=== PATIENT | male | born 1960 | race African-American/Black ===

== ENCOUNTER 2018-11-19 09:13 | Inpatient (IN) ==
[2018-11-19] MEDS ORDERED: DEXTROSE 50% 25 GM/50 ML SYRINGE IV PRN (09:59)
[2018-11-19] MEDS ORDERED: GLUCAGON 1 MG VIAL IM PRN (09:59)
[2018-11-19] MEDS ORDERED: ZOLPIDEM 5 MG TABLET PO PRN (10:10)
[2018-11-19] MEDS ORDERED: oxyCODONE/ACETAMINOPHEN 5-325 MG TABLET PO PRN (10:11)
[2018-11-19 17:05] LABS: Basophils % 0.2 % (0.0-0.8); Eosinophils % 0.6 % (0.00-10.9); Hematocrit 40.2 VOL% (42.0-52.0); Hemoglobin 12.4 GM/DL (14.0-18.0); Immature Granulocytes % 0.2 %; Immature Granulocytes Absolute 0.01 #; Lymphocytes # 1.2 10*3/uL (1.4-4.0); Lymphocytes % 24.1 % (21.2-54.2); Mean Corpuscular HGB Conc 30.8 GM/DL (32-36); Mean Corpuscular Volume 84.5 FL (87-102); Mean Platelet Volume 10.1 FL (9.6-12.0); Monocytes % 10.1 % (1.7-12.7); Neutrophils % 64.8 % (38.7-73.9); Platelet Count 301 T/CUMM (130-400); Red Blood Count 4.76 MC/CUMM (3.8-5.5); Red Cell Distribution Width 17.6 % (9.3-17.3); White Blood Count 4.9 T/CUMM (4-12)
[2018-11-19 17:24] LABS: ABG Base Excess 1.2 MMOL/L (-2.5-2.5); ABG HCO3 25.5 MMOL/L (20-26); ABG Oxygen Saturation 96.9 % (95-100); ABG PCO2 33.7 MM HG (35-48); ABG PH 7.467 (7.35-7.45); ABG PO2 88.4 MM HG (80-95); ABG TCO2 21.4 MMOL/L (23-27); Pt O2 Delivery Device Room Air
[2018-11-19 17:29] LABS: Albumin 2.5 G/DL (3.4-5.0); Bilirubin,Total 1.2 MG/DL (0.2-1.0); Osmolality,Calculated 281.7 MOS/KG (273-304); Total Protein 6.1 G/DL (6.4-8.3)
[2018-11-19] MEDS: METOPROLOL TARTRATE 50 MG TABLET PO SCH (20:48)
[2018-11-19] MEDS: CHLORHEXIDINE 0.12% ORAL RINSE 60 ML BOTTLE SWISH/SPIT SCH (20:48)
[2018-11-20] MEDS: SODIUM CHLORIDE 0.9% 1,000 ML IV SCH (05:02)
[2018-11-20] MEDS: ATORVASTATIN 80 MG TABLET PO SCH (09:05)
[2018-11-20] MEDS: CHLORHEXIDINE 0.12% ORAL RINSE 60 ML BOTTLE SWISH/SPIT SCH ×2 (09:05→21:29)
[2018-11-20] MEDS: ASPIRIN CHEW 81 MG TABLET PO SCH (09:05)
[2018-11-20] MEDS: METOPROLOL TARTRATE 50 MG TABLET PO SCH ×2 (09:06→21:27)
[2018-11-20] MEDS: PANTOPRAZOLE 40 MG TABLET PO SCH (09:06)
[2018-11-20] MEDS: FUROSEMIDE 40 MG TABLET PO SCH (09:06)
[2018-11-20] MEDS: CHLORHEXIDINE 4% SOLN 118 ML BOTTLE TOP SCH ×2 (15:13→21:29)
[2018-11-21] MEDS ORDERED: CEFUROXIME INJ 1,500 MG in SYRINGE 1 EACH IV ONE (05:00)
[2018-11-21] MEDS ORDERED: PAPAVERINE 60 MG/2 ML VIAL ONE (05:18)
[2018-11-21] MEDS ORDERED: VANCOMYCIN 1,000 MG VIAL ONE (05:19)
[2018-11-21] MEDS ORDERED: LORazepam 1 MG TABLET PO ONE (06:00)
[2018-11-21] MEDS: METOPROLOL TARTRATE 50 MG TABLET PO SCH ×2 (06:10→20:53)
[2018-11-21] MEDS: PANTOPRAZOLE 40 MG TABLET PO SCH ×2 (06:10→20:54)
[2018-11-21] MEDS ORDERED: SUFentanil 250 MCG/5 ML AMP ONE (06:19)
[2018-11-21] MEDS ORDERED: MIDAZOLAM 10 MG/2 ML VIAL ONE (06:20)
[2018-11-21] MEDS ORDERED: MINERAL OIL/PETROLATUM OPH OINT 3.5 GM TUBE ONE (06:20)
[2018-11-21 07:39] LABS: ABG Base Excess 0.1 MMOL/L (-2.5-2.5); ABG HCO3 24.6 MMOL/L (20-26); ABG Oxygen Saturation 99.9 % (95-100); ABG PCO2 38.8 MM HG (35-48); ABG TCO2 21.9 MMOL/L (23-27); Glucose Heart Surgery 141 MG/DL (74-106); Hematocrit Heart Surgery 35.4 PERCENT (42-52); Hemoglobin Heart Surgery 11.5 G/DL (14.0-18.0); Ionized Calcium Arterial 1.14 MMOL/L (1.21-1.46); PCO2 Patient Temp Arterial 38.8 MMHG; Patient Temperature 37 CELCIUS; Potassium Heart/CVR 3.5 MMOL/L (3.5-5.1); Sodium Heart/CVR 136 MMOL/L (135-145)
[2018-11-21 07:45] LABS: Apearance,Urine CLEAR (Clear); Bilirubin,Urine Negative (Negative); Blood, Urine Small mg/dL (Negative); Glucose,Urine (UA) Negative (Negative); Ketones,Urine Negative (Negative); Mucus,Urine Occasional /LPF (Occasional); Nitrite,Urine Negative (Negative); Protein,Urine Negative; RBC,Urine 28 /HPF (0-4); Urine Color Yellow (Yellow); Urine Specific Gravity 1.018 (1.001-1.035); WBC,Urine <1 /HPF (0-6)
[2018-11-21] MEDS ORDERED: SODIUM BICARBONATE 50 MEQ/50 ML VIAL IV ONE ×2 (08:29→09:35)
[2018-11-21] MEDS ORDERED: PHENYLEPHRINE DRIP 40 MG/250 ML PREMIX IV ONE (08:29)
[2018-11-21] MEDS ORDERED: NITROPRUSSIDE 50 MG/2 ML VIAL ONE (08:29)
[2018-11-21] MEDS ORDERED: CALCIUM CHLORIDE 1,000 MG/10 ML SYRINGE IV ONE (08:29)
[2018-11-21] MEDS ORDERED: POTASSIUM CHLORIDE RIDER 100 ML IV ONE (08:30)
[2018-11-21] MEDS ORDERED: EPINEPHrine 1 MG/10 ML SYRINGE ONE (08:30)
[2018-11-21] MEDS ORDERED: ALBUMIN 5% 12.5 GM/250 ML VIAL IV ONE (08:31)
[2018-11-21 08:47] LABS: Hematocrit Heart Surgery 23.9 PERCENT (42-52); Hemoglobin Heart Surgery 7.6 G/DL (14.0-18.0); PCO2 Patient Temp Venous 32.4 MM HG; PH Patient Temp Venous 7.482; PO2 Patient Temp Venous 44.3 MM HG; Potassium Heart/CVR 3.8 MMOL/L (3.5-5.1); VBG Base Excess 1.2 MEQ/L (0-4); VBG HCO3 25.3 MEQ/L (24-28); VBG Oxygen Saturation 84.4 %; VBG PCO2 35.7 MMHG (41-51); VBG PH 7.452; VBG PO2 50.7 MMHG (17-40)
[2018-11-21] MEDS ORDERED: ALBUMIN 25% 25 GM/100 ML VIAL IV ONE (09:35)
[2018-11-21] MEDS ORDERED: DEXTROSE 5% KCL 20 MEQ 20 MEQ/1,000 ML BAG IV ONE (09:35)
[2018-11-21] MEDS ORDERED: MANNITOL 100 GM/500 ML BAG IV ONE (09:35)
[2018-11-21] MEDS ORDERED: PROTAMINE SULFATE 250 MG/25 ML VIAL IV ONE (09:35)
[2018-11-21] MEDS ORDERED: FUROSEMIDE 20 MG/2 ML VIAL ONE (09:36)
[2018-11-21] MEDS ORDERED: MAGNESIUM SULFATE 5 GM/10 ML VIAL IV ONE (09:36)
[2018-11-21] MEDS ORDERED: HEPARIN 10,000 UNIT/10 ML VIAL ONE (09:36)
[2018-11-21] MEDS ORDERED: methylPREDNISolone SOD SUC 1,000 MG/8 ML VIAL ONE (09:36)
[2018-11-21] MEDS ORDERED: POTASSIUM CHLORIDE 20 MEQ/10 ML VIAL ONE (09:36)
[2018-11-21 09:43] LABS: ABG HCO3 24.5 MMOL/L (20-26); ABG PCO2 35.7 MM HG (35-48); ABG PH 7.436 (7.35-7.45); ABG TCO2 22.5 MMOL/L (23-27); Glucose Heart Surgery 210 MG/DL (74-106); Hematocrit Heart Surgery 23.6 PERCENT (42-52); Hemoglobin Heart Surgery 7.6 G/DL (14.0-18.0); Ionized Calcium Arterial 1.17 MMOL/L (1.21-1.46); PCO2 Patient Temp Arterial 35.7 MMHG; PH Patient Temp Arterial 7.436; Patient Temperature 37 CELCIUS; Potassium Heart/CVR 4.1 MMOL/L (3.5-5.1); Sodium Heart/CVR 133 MMOL/L (135-145)
[2018-11-21] MEDS ORDERED: DOBUTamine 500 MG/250 ML PREMIX IV ONE ×2 (10:09→10:38)
[2018-11-21] MEDS ORDERED: LACTATED RINGERS 1,000 ML IV ONE ×5 (10:30→18:00)
[2018-11-21] MEDS: SODIUM CHLORIDE 0.45% 1,000 ML IV SCH ×2 (10:30)
[2018-11-21] MEDS ORDERED: PHENYLEPHRINE 10 MG/1 ML VIAL IV ONE (10:38)
[2018-11-21] MEDS ORDERED: CALCIUM CHLORIDE 1,000 MG/10 ML VIAL IV ONE (10:38)
[2018-11-21] MEDS ORDERED: SEVOFLURANE 1 UNIT/15 MINUTE INH ONE (10:38)
[2018-11-21] MEDS ORDERED: VECURONIUM 10 MG VIAL IV ONE (10:38)
[2018-11-21] MEDS ORDERED: HEPARIN/NACL 0.9% 2 UNITS/ML 500 ML IV ONE (10:38)
[2018-11-21] MEDS ORDERED: NITROGLYCERIN DRIP 50 MG/250 ML BOTTLE IV ONE (10:38)
[2018-11-21] MEDS ORDERED: ETOMIDATE 40 MG/20 ML VIAL IV ONE (10:38)
[2018-11-21] MEDS ORDERED: AMIODARONE 150 MG/3 ML VIAL ONE (10:38)
[2018-11-21] MEDS ORDERED: SODIUM CHLORIDE 0.9% 100 ML IV ONE (10:39)
[2018-11-21] MEDS ORDERED: SODIUM CHLORIDE 0.9% 250 ML IV ONE (10:39)
[2018-11-21] MEDS ORDERED: AMINOCAPROIC ACID 5,000 MG/20 ML VIAL ONE (10:39)
[2018-11-21] MEDS ORDERED: SODIUM CHLORIDE 0.9% 1,000 ML IV ONE (10:39)
[2018-11-21] MEDS ORDERED: NITROPRUSSIDE 100 MG in DEXTROSE 5% 250 ML IV PRN (11:03)
[2018-11-21] MEDS ORDERED: MAGNESIUM SULF RIDER 2 GM in PREMIX 1 EACH IV PRN (11:03)
[2018-11-21] MEDS ORDERED: PHENYLEPHRINE DRIP 40 MG/250 ML PREMIX IV PRN (11:03)
[2018-11-21] MEDS ORDERED: LACTATED RINGERS 250 ML IV PRN (11:03)
[2018-11-21] MEDS ORDERED: MORPHINE 10 MG/1 ML VIAL IV PRN (11:03)
[2018-11-21] MEDS ORDERED: DEXTROSE 50% 25 GM/50 ML SYRINGE IV PRN ×2 (11:03)
[2018-11-21] MEDS ORDERED: ONDANSETRON 4 MG/2 ML VIAL IV PRN (11:03)
[2018-11-21] MEDS ORDERED: MORPHINE 4 MG/1 ML VIAL IV PRN (11:03)
[2018-11-21] MEDS ORDERED: ACETAMINOPHEN 650 MG SUPP RECTAL PRN (11:03)
[2018-11-21] MEDS ORDERED: MAGNESIUM SULF RIDER 4 GM in PREMIX 1 EACH IV PRN (11:03)
[2018-11-21] MEDS ORDERED: CALCIUM CHLORIDE 1,000 MG/10 ML SYRINGE IV PRN (11:03)
[2018-11-21] MEDS ORDERED: VECURONIUM 10 MG VIAL IV PRN ×2 (11:03)
[2018-11-21] MEDS ORDERED: INSULIN REGULAR 100 UNIT/ML IV PRN (11:03)
[2018-11-21] MEDS ORDERED: INSULIN REGULAR 100 UNIT/ML IV ONE (11:03)
[2018-11-21] MEDS ORDERED: MIDAZOLAM 2 MG/2 ML VIAL IV PRN (11:03)
[2018-11-21] MEDS ORDERED: MIDAZOLAM 10 MG/2 ML VIAL IV PRN (11:03)
[2018-11-21] MEDS ORDERED: INSULIN REGULAR DRIP 100 ML IV SCH (11:03)
[2018-11-21 11:13] LABS: ABG Base Excess -0.1 MMOL/L (-2.5-2.5); ABG HCO3 24.4 MMOL/L (20-26); ABG Oxygen Saturation 99.7 % (95-100); ABG PH 7.468 (7.35-7.45); ABG TCO2 21.5 MMOL/L (23-27); Glucose Heart Surgery 179 MG/DL (74-106); Hematocrit Heart Surgery 25.5 PERCENT (42-52); Hemoglobin Heart Surgery 8.2 G/DL (14.0-18.0); Potassium Heart/CVR 3.8 MMOL/L (3.5-5.1)
[2018-11-21 11:15] LABS: Basophils % 0.2 % (0.0-0.8); Eosinophils % 0.5 % (0.00-10.9); Hematocrit 26.1 VOL% (42.0-52.0); Immature Granulocytes % 0.6 %; Immature Granulocytes Absolute 0.04 #; Lymphocytes # 0.6 10*3/uL (1.4-4.0); Mean Corpuscular HGB Conc 31.4 GM/DL (32-36); Mean Corpuscular Volume 83.4 FL (87-102); Mean Platelet Volume 10.3 FL (9.6-12.0); Monocytes % 7.2 % (1.7-12.7); Neutrophils % 82.5 % (38.7-73.9); Platelet Count 175 T/CUMM (130-400); Red Cell Distribution Width 17.1 % (9.3-17.3)
[2018-11-21 11:16] LABS: Hemoglobin 8.2 GM/DL (14.0-18.0); Red Blood Count 3.13 MC/CUMM (3.8-5.5); White Blood Count 6.4 T/CUMM (4-12)
[2018-11-21 11:22] LABS: INR 1.4; PT Patient Result 15.4 SECS
[2018-11-21 11:28] LABS: Partial Thromboplastin Time 39.7 SECS (0-40)
[2018-11-21 11:32] LABS: Albumin 1.8 G/DL (3.4-5.0); Calcium 8.4 MG/DL (8.5-10.1); Osmolality,Calculated 287.3 MOS/KG (273-304); Total Protein 3.8 G/DL (6.4-8.3)
[2018-11-21 11:34] LABS: CKMB % 10.3 %
[2018-11-21 11:37] LABS: Troponin I 1.74 NG/ML (0.00-0.045)
[2018-11-21 12:49] LABS: ABG Base Excess 0.7 MMOL/L (-2.5-2.5); ABG Oxygen Saturation 99.2 % (95-100); ABG PCO2 32.4 MM HG (35-48); ABG PH 7.472 (7.35-7.45); ABG TCO2 21.2 MMOL/L (23-27); Glucose Heart Surgery 187 MG/DL (74-106); Hematocrit Heart Surgery 33.8 PERCENT (42-52); Potassium Heart/CVR 3.9 MMOL/L (3.5-5.1)
[2018-11-21] MEDS: ALBUMIN 5% 12.5 GM in PREMIX 1 EACH IV PRN ×3 (14:00→19:59)
[2018-11-21] MEDS: KETOROLAC 30 MG/1 ML VIAL IV SCH ×3 (14:32→23:09)
[2018-11-21] MEDS ORDERED: DOBUTamine 500 MG/250 ML PREMIX IV PRN (15:23)
[2018-11-21 15:25] LABS: ABG Base Excess 0.9 MMOL/L (-2.5-2.5); ABG HCO3 25.2 MMOL/L (20-26); ABG Oxygen Saturation 98.6 % (95-100); ABG PCO2 33.1 MM HG (35-48); ABG PH 7.467 (7.35-7.45); ABG TCO2 20.8 MMOL/L (23-27); Glucose Heart Surgery 153 MG/DL (74-106); Hematocrit Heart Surgery 39.8 PERCENT (42-52); Potassium Heart/CVR 3.5 MMOL/L (3.5-5.1)
[2018-11-21] MEDS: POTASSIUM CHLORIDE RIDER 20 MEQ in PREMIX 1 EACH IV PRN ×2 (15:35→21:16)
[2018-11-21] MEDS: POTASSIUM CHLORIDE RIDER 10 MEQ in PREMIX 1 EACH IV PRN ×3 (16:06→19:07)
[2018-11-21 18:36] LABS: ABG Base Excess 1.8 MMOL/L (-2.5-2.5); ABG Oxygen Saturation 97.7 % (95-100); ABG PCO2 36.5 MM HG (35-48); ABG PH 7.452 (7.35-7.45); ABG PO2 95.6 MM HG (80-95); ABG TCO2 22.3 MMOL/L (23-27); Glucose Heart Surgery 112 MG/DL (74-106); Hematocrit Heart Surgery 38.9 PERCENT (42-52); Hemoglobin Heart Surgery 12.7 G/DL (14.0-18.0)
[2018-11-21 19:27] LABS: CKMB % 9.8 %
[2018-11-21 19:32] LABS: Troponin I 6.29 NG/ML (0.00-0.045)
[2018-11-21] MEDS: CEFUROXIME INJ 1,500 MG in SYRINGE 1 EACH IV SCH (20:06)
[2018-11-21] MEDS: SODIUM CHLORIDE 0.9% 1,000 ML IV SCH (20:52)
[2018-11-21] MEDS: ASPIRIN CHEW 81 MG TABLET PO SCH (20:52)
[2018-11-21] MEDS: CHLORHEXIDINE 0.12% ORAL RINSE 60 ML BOTTLE SWISH/SPIT SCH ×2 (20:53→21:10)
[2018-11-21] MEDS: CHLORHEXIDINE 4% SOLN 118 ML BOTTLE TOP SCH (20:53)
[2018-11-21] MEDS: FUROSEMIDE 40 MG TABLET PO SCH (20:53)
[2018-11-21] MEDS: ATORVASTATIN 80 MG TABLET PO SCH (20:53)
[2018-11-21 21:12] LABS: ABG Base Excess 1.3 MMOL/L (-2.5-2.5); ABG HCO3 25.6 MMOL/L (20-26); ABG Oxygen Saturation 98.5 % (95-100); ABG PCO2 35.4 MM HG (35-48); ABG PH 7.455 (7.35-7.45); ABG TCO2 21.9 MMOL/L (23-27); Glucose Heart Surgery 120 MG/DL (74-106); Hematocrit Heart Surgery 37.5 PERCENT (42-52); Hemoglobin Heart Surgery 12.2 G/DL (14.0-18.0); Potassium Heart/CVR 4.1 MMOL/L (3.5-5.1)
[2018-11-21 22:10] LABS: ABG Base Excess -0.7 MMOL/L (-2.5-2.5); ABG HCO3 23.8 MMOL/L (20-26); ABG Oxygen Saturation 98.2 % (95-100); ABG PCO2 38.9 MM HG (35-48); ABG PH 7.396 (7.35-7.45); ABG TCO2 21.1 MMOL/L (23-27); Glucose Heart Surgery 128 MG/DL (74-106); Hematocrit Heart Surgery 38.1 PERCENT (42-52); Hemoglobin Heart Surgery 12.4 G/DL (14.0-18.0); Potassium Heart/CVR 4.6 MMOL/L (3.5-5.1)
[2018-11-21 23:12] LABS: ABG Base Excess -1.8 MMOL/L (-2.5-2.5); ABG HCO3 22.9 MMOL/L (20-26); ABG Oxygen Saturation 98.4 % (95-100); ABG PCO2 44.5 MM HG (35-48); ABG PH 7.342 (7.35-7.45); ABG TCO2 21.3 MMOL/L (23-27); Glucose Heart Surgery 138 MG/DL (74-106); Hematocrit Heart Surgery 39.3 PERCENT (42-52); Hemoglobin Heart Surgery 12.8 G/DL (14.0-18.0); Potassium Heart/CVR 4.5 MMOL/L (3.5-5.1)
[2018-11-22] MEDS: ALBUMIN 5% 12.5 GM in PREMIX 1 EACH IV PRN ×3 (00:05→15:49)
[2018-11-22 00:31] LABS: ABG Base Excess -1.8 MMOL/L (-2.5-2.5); ABG HCO3 22.9 MMOL/L (20-26); ABG TCO2 20.6 MMOL/L (23-27)
[2018-11-22 00:32] LABS: ABG Oxygen Saturation 97.8 % (95-100); Glucose Heart Surgery 142 MG/DL (74-106); Potassium Heart/CVR 4.4 MMOL/L (3.5-5.1)
[2018-11-22 00:33] LABS: Hemoglobin Heart Surgery 12.7 G/DL (14.0-18.0)
[2018-11-22 04:34] LABS: ABG Base Excess -1.9 MMOL/L (-2.5-2.5); ABG HCO3 22.9 MMOL/L (20-26); ABG Oxygen Saturation 96.8 % (95-100); ABG PCO2 39.5 MM HG (35-48); ABG PH 7.382 (7.35-7.45); ABG PO2 97.1 MM HG (80-95); ABG TCO2 24.2 MMOL/L (23-27); Glucose Heart Surgery 125 MG/DL (74-106); Hemoglobin Heart Surgery 12.6 G/DL (14.0-18.0); Potassium Heart/CVR 4.3 MMOL/L (3.5-5.1)
[2018-11-22 04:47] LABS: Basophils % 0.1 % (0.0-0.8); Hemoglobin 11.7 GM/DL (14.0-18.0); Immature Granulocytes % 0.4 %; Immature Granulocytes Absolute 0.05 #; Lymphocytes # 0.9 10*3/uL (1.4-4.0); Lymphocytes % 6.8 % (21.2-54.2); Mean Corpuscular HGB Conc 31.6 GM/DL (32-36); Mean Corpuscular Volume 84.5 FL (87-102); Mean Platelet Volume 10.3 FL (9.6-12.0); Monocytes % 5.3 % (1.7-12.7); Neutrophils % 87.4 % (38.7-73.9); Platelet Count 185 T/CUMM (130-400); Red Blood Count 4.38 MC/CUMM (3.8-5.5); Red Cell Distribution Width 16.9 % (9.3-17.3); White Blood Count 12.9 T/CUMM (4-12)
[2018-11-22 05:06] LABS: Albumin 2.9 G/DL (3.4-5.0); Bilirubin,Direct 0.58 MG/DL (0.0-0.20); Total Protein 5.5 G/DL (6.4-8.3)
[2018-11-22 05:10] LABS: CKMB % 6.9 %
[2018-11-22 05:11] LABS: Troponin I 3.98 NG/ML (0.00-0.045)
[2018-11-22] MEDS: KETOROLAC 30 MG/1 ML VIAL IV SCH ×2 (05:43→11:49)
[2018-11-22 06:10] LABS: ABG Base Excess -2.1 MMOL/L (-2.5-2.5); ABG HCO3 22.5 MMOL/L (20-26); ABG Oxygen Saturation 96.6 % (95-100); ABG PCO2 37.6 MM HG (35-48); ABG PH 7.394 (7.35-7.45); ABG TCO2 23.6 MMOL/L (23-27); Glucose Heart Surgery 126 MG/DL (74-106); Hemoglobin Heart Surgery 12.6 G/DL (14.0-18.0); Potassium Heart/CVR 4.3 MMOL/L (3.5-5.1)
[2018-11-22] MEDS ORDERED: FUROSEMIDE 40 MG/4 ML VIAL IV ONE ×3 (06:31→17:33)
[2018-11-22] MEDS ORDERED: GLUCAGON 1 MG VIAL IM PRN (06:33)
[2018-11-22] MEDS ORDERED: DEXTROSE 50% 25 GM/50 ML SYRINGE IV PRN (06:33)
[2018-11-22 07:34] LABS: ABG Base Excess -1.9 MMOL/L (-2.5-2.5); ABG HCO3 22.4 MMOL/L (20-26); ABG Oxygen Saturation 95.9 % (95-100); ABG PCO2 36.8 MM HG (35-48); ABG PH 7.402 (7.35-7.45); ABG PO2 86.2 MM HG (80-95); ABG TCO2 23.5 MMOL/L (23-27); Glucose Heart Surgery 128 MG/DL (74-106); Hemoglobin Heart Surgery 12.6 G/DL (14.0-18.0); Potassium Heart/CVR 4.4 MMOL/L (3.5-5.1)
[2018-11-22] MEDS: INSULIN REGULAR 100 UNIT/ML SUBCUT SCH ×4 (07:47→20:49)
[2018-11-22] MEDS ORDERED: NITROPRUSSIDE 50 MG/2 ML VIAL ONE (07:48)
[2018-11-22] MEDS: CEFUROXIME INJ 1,500 MG in SYRINGE 1 EACH IV SCH ×2 (07:53→20:50)
[2018-11-22] MEDS ORDERED: INSULIN REGULAR 100 UNIT/ML SUBCUT SCH (08:00)
[2018-11-22] MEDS: CHLORHEXIDINE 0.12% ORAL RINSE 60 ML BOTTLE SWISH/SPIT SCH ×2 (08:41→20:50)
[2018-11-22] MEDS: SODIUM CHLORIDE 0.45% 1,000 ML IV SCH ×2 (10:09)
[2018-11-22 12:45] LABS: CKMB % 4.3 %
[2018-11-22 12:49] LABS: Troponin I 2.96 NG/ML (0.00-0.045)
[2018-11-22] MEDS: FUROSEMIDE INJ 100 MG in SODIUM CHLORIDE 0.9% 90 ML IV SCH (18:34)
[2018-11-22 19:05] LABS: Calcium 8.5 MG/DL (8.5-10.1); Osmolality,Calculated 285.1 MOS/KG (273-304)
[2018-11-23] MEDS: INSULIN REGULAR 100 UNIT/ML SUBCUT SCH ×5 (00:19→20:53)
[2018-11-23] MEDS: FUROSEMIDE INJ 100 MG in SODIUM CHLORIDE 0.9% 90 ML IV SCH (03:43)
[2018-11-23 03:49] LABS: Hematocrit 37.2 VOL% (42.0-52.0); Hemoglobin 11.8 GM/DL (14.0-18.0); Immature Granulocytes % 0.3 %; Immature Granulocytes Absolute 0.04 #; Lymphocytes # 0.7 10*3/uL (1.4-4.0); Lymphocytes % 5.3 % (21.2-54.2); Mean Corpuscular HGB Conc 31.7 GM/DL (32-36); Mean Corpuscular Volume 84.2 FL (87-102); Mean Platelet Volume 10.6 FL (9.6-12.0); Monocytes % 8.5 % (1.7-12.7); Neutrophils % 85.9 % (38.7-73.9); Platelet Count 172 T/CUMM (130-400); Red Blood Count 4.42 MC/CUMM (3.8-5.5); Red Cell Distribution Width 17.2 % (9.3-17.3); White Blood Count 13.8 T/CUMM (4-12)
[2018-11-23 04:19] LABS: Albumin 2.9 G/DL (3.4-5.0); Bilirubin,Direct 0.49 MG/DL (0.0-0.20); Bilirubin,Total 1.4 MG/DL (0.2-1.0); Calcium 8.2 MG/DL (8.5-10.1); Osmolality,Calculated 290.3 MOS/KG (273-304); Total Protein 5.4 G/DL (6.4-8.3)
[2018-11-23] MEDS: SODIUM CHLORIDE 0.45% 1,000 ML IV SCH (07:01)
[2018-11-23] MEDS: CHLORHEXIDINE 0.12% ORAL RINSE 60 ML BOTTLE SWISH/SPIT SCH ×3 (08:00→20:53)
[2018-11-23] MEDS ORDERED: MAGNESIUM SULF RIDER 4 GM in PREMIX 1 EACH IV PRN (10:53)
[2018-11-23] MEDS ORDERED: oxyCODONE/ACETAMINOPHEN 5-325 MG TABLET PO PRN (10:53)
[2018-11-23] MEDS ORDERED: ZALEPLON 5 MG CAPSULE PO PRN (10:53)
[2018-11-23] MEDS ORDERED: DEXTROSE 50% 25 GM/50 ML SYRINGE IV PRN (10:53)
[2018-11-23] MEDS ORDERED: ALUMINUM/MAGNES/SIMETH MAX STR 30 ML UDCUP PO PRN (10:53)
[2018-11-23] MEDS ORDERED: MORPHINE 4 MG/1 ML VIAL IV PRN (10:53)
[2018-11-23] MEDS ORDERED: MAGNESIUM HYDROXIDE SUSP 30 ML UDCUP PO PRN (10:53)
[2018-11-23] MEDS ORDERED: ONDANSETRON 4 MG/2 ML VIAL IV PRN (10:53)
[2018-11-23] MEDS ORDERED: DEXTROSE 50% 25 GM/50 ML VIAL IV PRN ×2 (10:53→13:33)
[2018-11-23] MEDS ORDERED: MAGNESIUM SULF RIDER 2 GM in PREMIX 1 EACH IV PRN (10:53)
[2018-11-23] MEDS ORDERED: ACETAMINOPHEN 325 MG TABLET PO PRN (10:53)
[2018-11-23] MEDS ORDERED: SODIUM CHLOR 0.45% KCL 20 MEQ 20 MEQ/1,000 ML BAG IV SCH (10:53)
[2018-11-23] MEDS ORDERED: GLUCAGON 1 MG VIAL IM PRN ×2 (10:53)
[2018-11-23] MEDS: PANTOPRAZOLE 40 MG TABLET PO SCH (12:38)
[2018-11-23] MEDS: FERROUS SULFATE 325 MG TABLET PO SCH (12:38)
[2018-11-23] MEDS: ASPIRIN EC 81 MG TABLET PO SCH ×2 (12:38→20:53)
[2018-11-23] MEDS: DOCUSATE SODIUM 100 MG CAPSULE PO SCH (12:38)
[2018-11-24] MEDS: INSULIN REGULAR 100 UNIT/ML SUBCUT SCH ×6 (00:37→21:19)
[2018-11-24 05:03] LABS: Basophils % 0.1 % (0.0-0.8); Eosinophils % 0.1 % (0.00-10.9); Hematocrit 37.4 VOL% (42.0-52.0); Immature Granulocytes % 0.4 %; Immature Granulocytes Absolute 0.06 #; Lymphocytes # 2.3 10*3/uL (1.4-4.0); Lymphocytes % 16.4 % (21.2-54.2); Mean Corpuscular HGB Conc 32.1 GM/DL (32-36); Mean Corpuscular Volume 83.7 FL (87-102); Monocytes % 10.1 % (1.7-12.7); Neutrophils % 72.9 % (38.7-73.9); Platelet Count 186 T/CUMM (130-400); Red Blood Count 4.47 MC/CUMM (3.8-5.5); Red Cell Distribution Width 17.7 % (9.3-17.3); White Blood Count 13.7 T/CUMM (4-12)
[2018-11-24 05:41] LABS: Alanine Aminotransferase 55 U/L (16-61); Albumin 2.9 G/DL (3.4-5.0); Alkaline Phosphatase 155 U/L (45-117); Aspartate Amino Transferase 51 U/L (0-37); Bilirubin,Indirect 0.9 MG/DL (0.0-1.0); Blood Urea Nitrogen 32 MG/DL (7-18); Calcium 8.3 MG/DL (8.5-10.1); Glucose 92 MG/DL (74-106); Osmolality,Calculated 287.3 MOS/KG (273-304); Total Protein 5.9 G/DL (6.4-8.3)
[2018-11-24 05:42] LABS: Troponin I 0.997 NG/ML (0.00-0.045)
[2018-11-24] MEDS ORDERED: FUROSEMIDE 40 MG/4 ML VIAL IV ONE (06:00)
[2018-11-24] MEDS: ASPIRIN EC 81 MG TABLET PO SCH ×2 (09:17→21:14)
[2018-11-24] MEDS: FERROUS SULFATE 325 MG TABLET PO SCH (09:17)
[2018-11-24] MEDS: DOCUSATE SODIUM 100 MG CAPSULE PO SCH (09:17)
[2018-11-24] MEDS: PANTOPRAZOLE 40 MG TABLET PO SCH (09:17)
[2018-11-24] MEDS: CHLORHEXIDINE 0.12% ORAL RINSE 60 ML BOTTLE SWISH/SPIT SCH ×2 (09:17→21:14)
[2018-11-24] MEDS: FUROSEMIDE 40 MG/4 ML VIAL IV SCH (16:42)
[2018-11-25] MEDS: INSULIN REGULAR 100 UNIT/ML SUBCUT SCH ×6 (02:26→20:39)
[2018-11-25 06:17] LABS: Basophils % 0.1 % (0.0-0.8); Eosinophils % 0.3 % (0.00-10.9); Hematocrit 37.9 VOL% (42.0-52.0); Hemoglobin 11.9 GM/DL (14.0-18.0); Immature Granulocytes % 0.5 %; Immature Granulocytes Absolute 0.05 #; Lymphocytes # 1.8 10*3/uL (1.4-4.0); Lymphocytes % 17.3 % (21.2-54.2); Mean Corpuscular HGB Conc 31.4 GM/DL (32-36); Mean Platelet Volume 10.8 FL (9.6-12.0); Monocytes % 10.9 % (1.7-12.7); Neutrophils % 70.9 % (38.7-73.9); Platelet Count 209 T/CUMM (130-400); Red Blood Count 4.46 MC/CUMM (3.8-5.5); Red Cell Distribution Width 17.6 % (9.3-17.3); White Blood Count 10.5 T/CUMM (4-12)
[2018-11-25 06:55] LABS: Alanine Aminotransferase 58 U/L (16-61); Albumin 2.9 G/DL (3.4-5.0); Alkaline Phosphatase 138 U/L (45-117); Aspartate Amino Transferase 45 U/L (0-37); Bilirubin,Indirect 0.9 MG/DL (0.0-1.0); Blood Urea Nitrogen 24 MG/DL (7-18); Glucose 123 MG/DL (74-106); Osmolality,Calculated 285.3 MOS/KG (273-304); Total Protein 5.9 G/DL (6.4-8.3)
[2018-11-25 06:56] LABS: Troponin I 0.786 NG/ML (0.00-0.045)
[2018-11-25] MEDS: POTASSIUM CHLORIDE 20 MEQ TABLET PO PRN ×2 (08:32→10:39)
[2018-11-25] MEDS: ASPIRIN EC 81 MG TABLET PO SCH ×2 (08:32→20:23)
[2018-11-25] MEDS: PANTOPRAZOLE 40 MG TABLET PO SCH (08:32)
[2018-11-25] MEDS: CHLORHEXIDINE 0.12% ORAL RINSE 60 ML BOTTLE SWISH/SPIT SCH ×2 (08:32→20:30)
[2018-11-25] MEDS: DOCUSATE SODIUM 100 MG CAPSULE PO SCH (08:32)
[2018-11-25] MEDS: FERROUS SULFATE 325 MG TABLET PO SCH (08:32)
[2018-11-25] MEDS: METOPROLOL TARTRATE 25 MG TABLET PO SCH ×2 (08:32→20:23)
[2018-11-25] MEDS: FUROSEMIDE 40 MG/4 ML VIAL IV SCH ×2 (08:33→16:28)
[2018-11-26] MEDS: INSULIN REGULAR 100 UNIT/ML SUBCUT SCH ×3 (01:47→09:04)
[2018-11-26 04:43] LABS: Basophils % 0.2 % (0.0-0.8); Eosinophils # 0.1 10*3/uL (0.0-0.87); Eosinophils % 1.2 % (0.00-10.9); Hematocrit 35.4 VOL% (42.0-52.0); Hemoglobin 11.1 GM/DL (14.0-18.0); Immature Granulocytes % 0.6 %; Immature Granulocytes Absolute 0.06 #; Lymphocytes # 1.8 10*3/uL (1.4-4.0); Lymphocytes % 17.6 % (21.2-54.2); Mean Corpuscular HGB Conc 31.4 GM/DL (32-36); Mean Corpuscular Volume 85.1 FL (87-102); Mean Platelet Volume 10.6 FL (9.6-12.0); Monocytes % 11.6 % (1.7-12.7); Neutrophils % 68.8 % (38.7-73.9); Platelet Count 210 T/CUMM (130-400); Red Blood Count 4.16 MC/CUMM (3.8-5.5); Red Cell Distribution Width 17.5 % (9.3-17.3); White Blood Count 10.2 T/CUMM (4-12)
[2018-11-26 04:45] LABS: Albumin 2.7 G/DL (3.4-5.0); Bilirubin,Total 1.2 MG/DL (0.2-1.0); Calcium 8.3 MG/DL (8.5-10.1); Osmolality,Calculated 281.5 MOS/KG (273-304); Total Protein 5.7 G/DL (6.4-8.3)
[2018-11-26] MEDS: FERROUS SULFATE 325 MG TABLET PO SCH (09:19)
[2018-11-26] MEDS: PANTOPRAZOLE 40 MG TABLET PO SCH (09:19)
[2018-11-26] MEDS: DOCUSATE SODIUM 100 MG CAPSULE PO SCH (09:19)
[2018-11-26] MEDS: POTASSIUM CHLORIDE 20 MEQ TABLET PO PRN ×2 (09:19→14:21)
[2018-11-26] MEDS: METOPROLOL TARTRATE 25 MG TABLET PO SCH ×2 (09:19→20:52)
[2018-11-26] MEDS: ASPIRIN EC 81 MG TABLET PO SCH ×2 (09:19→20:52)
[2018-11-26] MEDS: CHLORHEXIDINE 0.12% ORAL RINSE 60 ML BOTTLE SWISH/SPIT SCH ×2 (09:20→20:52)
[2018-11-26] MEDS: FUROSEMIDE 40 MG/4 ML VIAL IV SCH ×2 (09:40→17:56)
[2018-11-27 06:23] LABS: Basophils % 0.2 % (0.0-0.8); Eosinophils # 0.1 10*3/uL (0.0-0.87); Eosinophils % 0.9 % (0.00-10.9); Hematocrit 34.5 VOL% (42.0-52.0); Hemoglobin 10.9 GM/DL (14.0-18.0); Immature Granulocytes % 0.5 %; Immature Granulocytes Absolute 0.05 #; Lymphocytes # 1.9 10*3/uL (1.4-4.0); Lymphocytes % 19.6 % (21.2-54.2); Mean Corpuscular HGB Conc 31.6 GM/DL (32-36); Mean Corpuscular Volume 84.8 FL (87-102); Mean Platelet Volume 10.4 FL (9.6-12.0); Monocytes % 13.4 % (1.7-12.7); Neutrophils % 65.4 % (38.7-73.9); Platelet Count 243 T/CUMM (130-400); Red Blood Count 4.07 MC/CUMM (3.8-5.5); Red Cell Distribution Width 17.5 % (9.3-17.3); White Blood Count 9.5 T/CUMM (4-12)
[2018-11-27 06:51] LABS: Alanine Aminotransferase 52 U/L (16-61); Albumin 2.8 G/DL (3.4-5.0); Alkaline Phosphatase 124 U/L (45-117); Aspartate Amino Transferase 35 U/L (0-37); Bilirubin,Indirect 1.2 MG/DL (0.0-1.0); Blood Urea Nitrogen 17 MG/DL (7-18); Glucose 104 MG/DL (74-106); Osmolality,Calculated 280.4 MOS/KG (273-304)
[2018-11-27] MEDS: ASPIRIN EC 81 MG TABLET PO SCH ×2 (08:43→21:14)
[2018-11-27] MEDS: DOCUSATE SODIUM 100 MG CAPSULE PO SCH (08:44)
[2018-11-27] MEDS: METOPROLOL TARTRATE 25 MG TABLET PO SCH ×2 (08:44→21:14)
[2018-11-27] MEDS: PANTOPRAZOLE 40 MG TABLET PO SCH (08:44)
[2018-11-27] MEDS: FERROUS SULFATE 325 MG TABLET PO SCH (08:49)
[2018-11-27] MEDS: CHLORHEXIDINE 0.12% ORAL RINSE 60 ML BOTTLE SWISH/SPIT SCH ×2 (08:49→21:14)
[2018-11-27] MEDS: FUROSEMIDE 40 MG/4 ML VIAL IV SCH (09:35)
[2018-11-28 03:03] LABS: Basophils % 0.3 % (0.0-0.8); Eosinophils # 0.1 10*3/uL (0.0-0.87); Eosinophils % 1.4 % (0.00-10.9); Hematocrit 31.9 VOL% (42.0-52.0); Hemoglobin 9.9 GM/DL (14.0-18.0); Immature Granulocytes % 0.5 %; Immature Granulocytes Absolute 0.04 #; Lymphocytes # 1.7 10*3/uL (1.4-4.0); Lymphocytes % 19.9 % (21.2-54.2); Monocytes % 11.6 % (1.7-12.7); Neutrophils % 66.3 % (38.7-73.9); Platelet Count 213 T/CUMM (130-400); Red Blood Count 3.71 MC/CUMM (3.8-5.5); Red Cell Distribution Width 17.6 % (9.3-17.3); White Blood Count 8.6 T/CUMM (4-12)
[2018-11-28 03:25] LABS: Alanine Aminotransferase 60 U/L (16-61); Albumin 2.5 G/DL (3.4-5.0); Alkaline Phosphatase 146 U/L (45-117); Aspartate Amino Transferase 53 U/L (0-37); Bilirubin,Indirect 0.6 MG/DL (0.0-1.0); Blood Urea Nitrogen 17 MG/DL (7-18); Calcium 8.7 MG/DL (8.5-10.1); Glucose 130 MG/DL (74-106); Osmolality,Calculated 280.5 MOS/KG (273-304); Total Protein 5.7 G/DL (6.4-8.3)
[2018-11-28] MEDS: ASPIRIN EC 81 MG TABLET PO SCH ×2 (10:14→20:57)
[2018-11-28] MEDS: DOCUSATE SODIUM 100 MG CAPSULE PO SCH (10:14)
[2018-11-28] MEDS: METOPROLOL TARTRATE 25 MG TABLET PO SCH ×2 (10:14→20:57)
[2018-11-28] MEDS: PANTOPRAZOLE 40 MG TABLET PO SCH (10:15)
[2018-11-28] MEDS: CHLORHEXIDINE 0.12% ORAL RINSE 60 ML BOTTLE SWISH/SPIT SCH ×2 (10:15→20:57)
[2018-11-28] MEDS: FERROUS SULFATE 325 MG TABLET PO SCH (10:16)
[2018-11-29 08:04] VITALS: BP 109/55
[2018-11-29] MEDS: FERROUS SULFATE 325 MG TABLET PO SCH (08:14)
[2018-11-29] MEDS: DOCUSATE SODIUM 100 MG CAPSULE PO SCH (08:14)
[2018-11-29] MEDS: METOPROLOL TARTRATE 25 MG TABLET PO SCH (08:14)
[2018-11-29] MEDS: PANTOPRAZOLE 40 MG TABLET PO SCH (08:14)
[2018-11-29] MEDS: CHLORHEXIDINE 0.12% ORAL RINSE 60 ML BOTTLE SWISH/SPIT SCH (08:15)
[2018-11-29] MEDS: ASPIRIN EC 81 MG TABLET PO SCH (08:15)
== END 2018-11-29 16:23 | disposition home health service (06) | DRG 236 ==
LOC: N.TELEN 15:37 → N.CVR 11-21 09:36 → N.ICU 11-22 13:18 → N.TELES 11-23 13:54